=== PATIENT | male | born 1955 | race Caucasian/White ===

== ENCOUNTER 2017-08-28 07:07 | Day surgery (SDC) | payer OTHER ==
[2017-08-28] MEDS ORDERED: LACTATED RINGERS 1,000 ML IV ONE (07:32)
[2017-08-28] MEDS ORDERED: MIDAZOLAM 2 MG/2 ML VIAL IVP ONE (08:26)
[2017-08-28] MEDS ORDERED: fentaNYL 250 MCG/5 ML VIAL IVP ONE (08:26)
[2017-08-28 09:27] VITALS: BP 121/64
== END 2017-08-28 07:08 | disposition home or self-care (01) ==
LOC: SDS 07:07
PROVIDERS: ATTEND Internal Medicine Gastroenterology
PROC: 0DBN8ZZ Excision of Sigmoid Colon, Via Natural or Artificial Opening Endoscopic (ICD-10-PCS; principal; 2017-08-28 08:15)
DX: Z12.11 Encounter for screening for malignant neoplasm of colon (principal); D12.5 Benign neoplasm of sigmoid colon; C61 Malignant neoplasm of prostate; Z80.0 Family history of malignant neoplasm of digestive organs
CPT/HCPCS: 45380; J7120

== ENCOUNTER 2017-10-28 08:00 | Outpatient (CLI) | payer OTHER ==
[2017-10-28 18:38] LABS: PSA FREE 0.79 ng/mL (0.16-2.81)
[2017-10-28 18:39] LABS: PSA TOTAL 5.09 ng/mL (0.000-2.000)
== END 2017-10-28 08:01 ==
LOC: LAB.F 08:00
PROVIDERS: ATTEND Registered Nurse
DX: C61 Malignant neoplasm of prostate (principal)
CPT/HCPCS: 36415; 84154

== ENCOUNTER 2018-01-06 15:05 | Outpatient (CLI) | payer OTHER | END 2018-01-06 15:06 | disposition critical access hospital (66) | LOC: EMS 15:05 | PROVIDERS: ATTEND Surgery | DX: S89.92XA Unspecified injury of left lower leg, initial encounter (principal); W20.8XXA Other cause of strike by thrown, projected or falling object, initial encounter; Y93.H9 Activity, other involving exterior property and land maintenance, building and construction; Y92.008 Other place in unspecified non-institutional (private) residence as the place of occurrence of the external cause | CPT/HCPCS: A0425; A0427 ==

== ENCOUNTER 2018-01-06 16:39 | Emergency (ER) | payer OTHER ==
--- NOTE | 2018-01-06 16:51 | ED Physician Documentation ---
PD HPI LOWER EXT INJURY - Stated complaint Stated Complaint: BROKEN LEG - History obtained from History obtained from: Patient - History of Present Illness PD HPI LOW EXT INJURY LOCATION: Left, Lower leg Type of injury: Blunt / blow (he was cutting up a fallen tree and block of log kicked back and struck his lower leg and pinned his leg under it. He had to cut the log again to get it smaller enough to move it off his leg. He was unable to put weight on leg nor move it without pain. Called EMS.) Where injury occurred: Home (his property) Timing - onset: Today Timing - duration: Hours (1) Timing - details: Abrupt onset Improved by: Immobilization Worsened by: Moving, Palpating Associated symptoms: Swelling. No: Weakness, Numbness Contributing factors: No: Anticoagulated Similar symptoms before: Has not had sx before Recently seen: Not recently seen Review of Systems Nose: denies: Rhinorrhea / runny nose, Congestion Cardiac: denies: Chest pain / pressure Respiratory: denies: Dyspnea, Cough GI: denies: Abdominal Pain Skin: denies: Abrasion (s), Laceration (s) Neurologic: denies: Focal weakness, Numbness, Altered mental status, Headache, Head injury, LOC PD PAST MEDICAL HISTORY - Past Medical History Cardiovascular: None Respiratory: None Endocrine/Autoimmune: None GI: None : Other HEENT: None Psych: None Musculoskeletal: None Derm: None - Present Medications Home Medications: Ambulatory Orders Medication Instructions Recorded Confirmed Ibuprofen 600 mg PO TID PRN #25 tablet 01/06/18 Oxycodone HCl/Acetaminophen 1 - 2 each PO Q6H PRN #25 tablet 01/06/18 [Percocet 5-325 mg Tablet] - Allergies Allergies/Adverse Reactions: Allergies Allergy/AdvReac Type Severity Reaction Status Date / Time No Known Drug Allergies Allergy Verified 01/06/18 16:49 PD ED PE NORMAL - Vitals Vital signs reviewed: Yes - General General: Alert and oriented X 3, Well developed/nourished - HEENT HEENT: Atraumatic - Neck Neck: No bony TTP - Cardiac Cardiac: RRR - Respiratory Respiratory: Clear bilaterally, Other (no chestwall tenderness) - Abdomen Abdomen: Soft, Non tender - Back Back: No spinal TTP - Derm Derm: Normal color, Warm and dry, Other (no lacerations. ) - Extremities Extremities: No edema, Other (left lower leg just below knee with tenderness and swelling. Normal pulses and cap refill distally. Normal sensation and movement in ankle/toes. ) - Neuro Neuro: Alert and oriented X 3, No motor deficit, No sensory deficit, Normal speech Eye Opening: Spontaneous Motor: Obeys Commands Verbal: Oriented GCS Score: 15 Results - Vitals Vitals: Vital Signs - 24 hr 01/06/18 16:40 Temperature 36.7 C Heart Rate 65 Respiratory 18 Rate Blood Pressure 151/112 H O2 Saturation 99 Oxygen O2 Source Room air - Labs Labs: Laboratory Tests 01/06/18 01/06/18 17:03 17:03 WBC 10.2 RBC 4.29 L Hgb 14.4 Hct 43.7 MCV 102.0 H MCH 33.7 H MCHC 33.0 RDW 13.1 Plt Count 128 L MPV 9.7 Neut # (Auto) 8.4 H Lymph # (Auto) 1.0 L [place] # (Auto) 0.7 Eos # (Auto) 0.0 Baso # (Auto) 0.0 Absolute Nucleated RBC 0.01 Nucleated RBC % 0.1 Sodium 139 Potassium 4.7 Chloride 102 Carbon Dioxide 28 Anion Gap 9.0 BUN 25 H Creatinine 1.1 Estimated GFR (MDRD) 68 L Glucose 128 H Calcium 8.8 Total Bilirubin 0.8 AST 30 ALT 23 Alkaline Phosphatase 64 Total Protein 7.5 Albumin 4.4 Globulin 3.1 Albumin/Globulin Ratio 1.4 Lipase 43 - Rads (name of study) left tib/fib Radiology: Final report received (comminuted proximal tibial fracture with angulation, extends to anterior plateau. Proximal fibular metaphysis fracture as well. ) Procedures - Splint (location) left leg Splint applied by: Physician, Tech Type of splint: Fiberglass, Long leg, Posterior Other: Patient tolerated well, No complications, Neurovascular intact, Crutches provided PD MEDICAL DECISION MAKING - ED course Complexity details: reviewed results, re-evaluated patient (still good sensation and movement, color in toes after xray. Will consult Ortho regarding care of the injury.), considered differential, d/w patient, d/w outside sales consultant (Dr. Weber - who reviewed the images. Directs to get CT scan for prep for surgery, to splint with good padding, [place], posterior splint and then knee immobilizer. To give time for swelling to go down, then for surgical repair next week. ) Departure - Departure Clinical Impression: Blunt force injury Fracture of proximal end of left tibia and fibula Qualifiers: Encounter type: initial encounter Fracture type: closed Qualified Code(s): S82.102A - Unspecified fracture of upper end of left tibia, initial encounter for closed fracture Condition: Stable Record reviewed to determine appropriate education?: Yes Instructions: ED Fx Lower Ext Follow-Up: Cayetano Weber MD [Provider Admit Priv/Credential] - Prescriptions: Ibuprofen 600 mg PO TID PRN #25 tablet PRN Reason: Pain Oxycodone HCl/Acetaminophen [Percocet 5-325 mg Tablet] 1 - 2 each PO Q6H PRN #25 tablet PRN Reason: pain Comments: Keep the splint and knee immobilizer on. Rest ice and elevate the leg often over the next several days to reduce swelling. Call the orthopedic office tomorrow for an appointment for follow-up. This will need surgical repair and the orthopedist said the have a better outcome if they wait with the swelling to go down prior to surgery. Naproxen or ibuprofen for pain. Add Tylenol or Percocet if needed for worse pain.
[2018-01-06] MEDS: ONDANSETRON 4 MG/2 ML VIAL IVP STA (16:54)
[2018-01-06] MEDS: HYDROmorphone 1 MG/ML CARPUJECT IVP STA ×3 (16:54→20:06)
[2018-01-06 17:12] LABS: BASOPHILS % (AUTO) 0.4 %; EOSINOPHILS % (AUTO) 0.4 %; HGB - HEMOGLOBIN 14.4 g/dL (14.0-18.0); LYMPHOCYTES % (AUTO) 9.4 %; MEAN CORPUSCULAR HEMOGLOBIN 33.7 pg (27.0-31.0); MEAN PLATELET VOLUME 9.7 fL (7.4-11.4); MONOCYTES # (AUTO) 0.7 10^3/uL (0.0-1.0); MONOCYTES % (AUTO) 6.6 %; NEUTROPHILS # (AUTO) 8.4 10^3/uL (1.5-6.6); NEUTROPHILS % (AUTO) 83.2 %; PLT - PLATELET COUNT 128 10^3/uL (130-450); RED BLOOD COUNT 4.29 10^6/uL (4.70-6.10); RED CELL DISTRIBUTION WIDTH 13.1 % (12.0-15.0); WHITE BLOOD COUNT 10.2 x10^3/uL (4.8-10.8)
[2018-01-06 17:23] LABS: ALBUMIN 4.4 g/dL (3.2-5.5); ALBUMIN/GLOBULIN RATIO 1.4 (1.0-2.2); BILIRUBIN,TOTAL 0.8 mg/dL (0.2-1.0); CALCIUM 8.8 mg/dL (8.5-10.3); CREATININE 1.1 mg/dL (0.6-1.2); TOTAL PROTEIN 7.5 g/dL (6.7-8.2)
--- NOTE | 2018-01-06 17:32 | XRAY Report ---
Reason: lower leg struck by big log Procedure Date: 01/06/2018 Accession Number: [id number] / [id number] Procedure: XR - Tib/Fib LT CPT Code: FULL RESULT: EXAM: LEFT TIBIA/FIBULA RADIOGRAPHY EXAM DATE: 01/06/2018 04:59 PM. CLINICAL HISTORY: Lower leg struck by big log. COMPARISON: None. TECHNIQUE: 2 views. FINDINGS: Bones: There is a comminuted fracture of the superior tibia. The fracture involves the upper tibia diaphysis and metaphysis with 2.5 cm of displacement. The comminuted fracture appears to extend to the anterior tibial plateau. There is a fracture of the superior fibula metaphysis. Joints: No subluxation or dislocation. Soft Tissues: There is soft tissue swelling. IMPRESSION: 1. Comminuted fracture of the proximal left tibia, extending to the anterior tibial plateau. 2. Proximal fibula fracture. RADIA
[2018-01-06] MEDS: KETOROLAC 60 MG/2 ML VIAL IVP STA (19:05)
[2018-01-06] MEDS: oxyCODONE/ACET 5/325 Prepack 4 PO STA (19:06)
--- NOTE | 2018-01-06 20:57 | CT Report ---
Reason: proximal tibial/knee fracture on xray Procedure Date: 01/06/2018 Accession Number: [id number] / [id number] Procedure: CT - Lower Extremity Left W/O CPT Code: FULL RESULT: EXAM: LEFT KNEE CT WITHOUT CONTRAST. EXAM DATE: 01/06/2018 08:41 PM. CLINICAL HISTORY: Proximal tibial/knee fracture on x-ray. COMPARISON: Leg lower left 01/06/2018 4:59 PM. TECHNIQUE: Thin-section axial images were acquired of the knee without contrast. Post-processing: Coronal and sagittal reformats. Other: None. In accordance with CT protocol optimization, one or more of the following dose reduction techniques were utilized for this exam: automated exposure control, adjustment of mA and/or KV based on patient size, or use of iterative reconstructive technique. FINDINGS: Bones: There is a comminuted fracture of the proximal tibia. There is a transverse component through the proximal tibial metaphysis, with moderate lateral displacement and mild anterior tilting of the distal fracture fragment. The fracture fragments also appear superoinferiorly distracted. There is a comminuted fracture extending through the base of the tibial tuberosity, and the anterior aspect of the intercondylar ridge. The fractures extend through both the medial and lateral tibial condyles in the sagittal plane, creating 2 mm gap deformities in both articular surfaces. There is an oblique fracture of the fibular neck with moderate posterior displacement of the distal fracture fragment. Joints: There is a large hemarthrosis. Musculature: There is a hematoma surrounding the fracture, extending into the adjacent anterior muscular compartment. The hematoma is difficult to distinguish from the surrounding muscle. Other: No Bakers cyst. No soft tissue swelling. IMPRESSION: 1. Grossly comminuted fracture of the proximal tibia with intra-articular extension disrupting both the medial and lateral condylar articular surfaces. 2. There is a fracture through the base of the tibial tuberosity. 3. Transverse fracture through the tibial metaphysis with anterior tilting and lateral displacement. RADIA
[2018-01-06 21:55] VITALS: BP 146/91
== END 2018-01-06 21:30 | disposition home or self-care (01) ==
LOC: EDUNIT# → ED 16:39
DX: S82.102A Unspecified fracture of upper end of left tibia, initial encounter for closed fracture (principal); W22.8XXA Striking against or struck by other objects, initial encounter; Y93.H9 Activity, other involving exterior property and land maintenance, building and construction; Y92.007 Garden or yard of unspecified non-institutional (private) residence as the place of occurrence of the external cause
CPT/HCPCS: 29505; 36415; 80053; 83690; 85025; 96374; 96375; 96376; 99283; 99284

== ENCOUNTER 2020-01-30 13:44 | Emergency (ER) | payer OTHER ==
[2020-01-30 14:13] VITALS: BP 155/99
[2020-01-30] MEDS ORDERED: TETANUS/DIPHTHERIA/PERTUSSIS 0.5 ML SYRINGE IM ONE (14:47)
[2020-01-30] MEDS ORDERED: LIDOCAINE 1%-EPI 1:100000 20 ML MDV SUBQ STA (14:47)
[2020-01-30] MEDS ORDERED: BACITRACIN ZINC OINT 1 PACKET TOP STA (15:10)
--- NOTE | 2020-01-30 15:11 | ED Physician Documentation ---
PD HPI UPPER EXT INJURY - Stated complaint Stated Complaint: HAND LACERATION - Chief complaint Chief Complaint: Laceration - History obtained from History obtained from: Patient - History of Present Illness Location: Right, Hand Type of injury: Laceration Where injury occurred: Home Timing - onset: How many hours ago (1) Timing - duration: Hours (1) Timing - details: Abrupt onset Pain level max: 5 Pain level now: 3 Improved by: Rest Worsened by: Moving, Palpating Associated symptoms: No: Weakness, Numbness, Tingling Contributing factors: No: Anticoagulated Recently seen: Not recently seen - Additonal information Additional information: Patient was using a table saw today when the wood kicked back and he cut his right hand. The cat is on the palmar aspect of the hand in between the fourth and fifth digit. unknown last tetanus Review of Systems Constitutional: denies: Fever, Chills Neurologic: denies: Focal weakness, Numbness PD PAST MEDICAL HISTORY - Past Medical History Cardiovascular: None Respiratory: None Endocrine/Autoimmune: None GI: None : Other HEENT: None Psych: None Musculoskeletal: None Derm: None - Past Surgical History Past Surgical History: No - Present Medications Home Medications: Ambulatory Orders Medication Instructions Recorded Confirmed Ibuprofen 600 mg PO TID PRN #25 tablet 01/06/18 Oxycodone HCl/Acetaminophen 1 - 2 each PO Q6H PRN #25 tablet 01/06/18 [Percocet 5-325 mg Tablet] Cephalexin [Keflex] 500 mg PO Q6H #28 capsule 01/30/20 - Allergies Allergies/Adverse Reactions: Allergies Allergy/AdvReac Type Severity Reaction Status Date / Time antibiotic ?name Allergy Unknown Uncoded 01/30/20 14:15 - Social History Does the pt smoke?: No Smoking Status: Never smoker Does the pt drink ETOH?: Yes - Immunizations Immunizations: TDAP current <10years PD ED PE NORMAL - Vitals Vital signs reviewed: Yes - General General: Alert and oriented X 3, No acute distress - HEENT HEENT: Moist mucous membranes - Derm Derm: Warm and dry - Neuro Neuro: Alert and oriented X 3 - Psych Psych: Normal mood, Normal affect PD ED PE EXPANDED - Extremities [place] UE/Hands Visual: 1 - laceration (4cm, NVI, tendon intact. into fat. no bony injury) Results - Vitals Vitals: Vital Signs - 24 hr 01/30/20 14:03 Temperature 36.4 C L Heart Rate 58 L Respiratory 18 Rate Blood Pressure 155/99 H O2 Saturation 100 Oxygen O2 Source Room air Procedures - Laceration (location) R hand Length in cm: 4 Wound type: Linear, Into subcut fat, Contaminated Neurovascular status: Sensory intact, Motor intact, Vascular intact Tendon involvement: Tendon intact Anesthesia: Lidocaine 1% with epi Wound Preparation: Irrigated copiously NS, Wound explored, To the base Skin layer closure: Nylon, Interrupted, Size #-0 - enter number (4), Sutures - enter # (6) Other: Patient tolerated well, No complications, Neurovascular intact, Tetanus booster given (tdap) Complexity: Simple PD MEDICAL DECISION MAKING - ED course Complexity details: considered differential, d/w patient ED course: Patient with a laceration of the right hand. This was repaired. No tendon in jury. No bony injury. Given that it was a dirty sawblade, will place him on Keflex. Tdap given. Warnings of infection and instructions on wound care given at bedside. Also counseled on how to minimize scarring. Patient counseled regarding signs and symptoms for which I believe and urgent re-evaluation would be necessary. Patient with good understanding of and agreement to plan and is comfortable going home at this time This document was made in part using voice recognition software. While efforts are made to proofread this document, sound alike and grammatical errors may occur. Departure - Departure Disposition: 01 Home, Self Care Clinical Impression: Hand laceration Qualifiers: Encounter type: initial encounter Foreign body presence: unspecified Laterality: right Qualified Code(s): S61.411A - Laceration without foreign body of right hand, initial encounter Condition: Good Instructions: ED Laceration Hand Follow-Up: Jaclyn Moody ARNP [Primary Care Provider] - Within 1 week Prescriptions: Cephalexin [Keflex] 500 mg PO Q6H #28 capsule Comments: Take all antibiotics until gone. Return if you worsen. Return if you notice redness, swelling or drainage from the wound. The sutures should be removed in approximately 14 days with your doctor or here.
== END 2020-01-30 15:39 | disposition home or self-care (01) ==
LOC: ED 13:44
DX: S61.411A Laceration without foreign body of right hand, initial encounter (principal); W31.2XXA Contact with powered woodworking and forming machines, initial encounter; Y93.89 Activity, other specified; Y92.009 Unspecified place in unspecified non-institutional (private) residence as the place of occurrence of the external cause; Z23 Encounter for immunization
CPT/HCPCS: 12002; 90471; 99282

== ENCOUNTER 2020-05-04 10:19 | Outpatient (CLI) | payer OTHER ==
[2020-05-04 10:55] LABS: HCT - HEMATOCRIT 43.8 % (42.0-52.0); HGB - HEMOGLOBIN 14.6 g/dL (14.0-18.0); MEAN CORPUSCULAR HGB CONC 33.3 g/dL (32.0-36.0); MEAN CORPUSCULAR VOLUME 99.1 fL (80.0-94.0); MEAN PLATELET VOLUME 11.5 fL (7.4-11.4); RED BLOOD COUNT 4.42 10^6/uL (4.70-6.10); RED CELL DISTRIBUTION WIDTH 12.7 % (12.0-15.0); WHITE BLOOD COUNT 3.7 x10^3/uL (4.8-10.8)
[2020-05-04 10:59] LABS: CALCIUM 9.4 mg/dL (8.5-10.3); CREATININE 1.1 mg/dL (0.6-1.2); POTASSIUM 4.5 mmol/L (3.5-5.0)
== END 2020-05-04 10:20 | disposition home or self-care (01) ==
LOC: LAB 10:19
PROVIDERS: ATTEND Urology
DX: Z01.818 Encounter for other preprocedural examination (principal); R97.20 Elevated prostate specific antigen [PSA]
CPT/HCPCS: 36415; 80048; 84153; 85027

== ENCOUNTER 2020-05-04 10:57 | Outpatient (CLI) | payer OTHER | END 2020-05-04 10:58 | disposition home or self-care (01) | LOC: RT 10:57 | PROVIDERS: ATTEND Urology | DX: Z01.818 Encounter for other preprocedural examination (principal); R97.20 Elevated prostate specific antigen [PSA] | CPT/HCPCS: 36415; 80048; 84153; 85027; 93005 ==

== ENCOUNTER 2020-10-25 08:00 | Outpatient (CLI) | payer OTHER ==
--- NOTE | 2020-10-25 15:27 | XRAY Report ---
PROCEDURE: Hand 3 View RT INDICATIONS: CONTUSION OF RIGHT HAND TECHNIQUE: 3 views of the hand(s) acquired. COMPARISON: None. FINDINGS: Bones: No fractures or dislocations. No suspicious bony lesions. Soft tissues: No suspicious soft tissue calcifications. IMPRESSION: No definite fracture however follow-up radiographs in 10 days could be performed if the patient's sym ptoms do not improve to exclude occult fracture/assess for healing sclerosis. Reviewed by: Michael Verdugo MD on 10/25/2020 3:26 PM PDT Approved by: Michael Verdugo MD on 10/25/2020 3:26 PM PDT Station ID: [id number]
== END 2020-10-25 23:59 | disposition home or self-care (01) ==
LOC: DI.S 08:00
PROVIDERS: ATTEND Emergency Medicine
DX: S60.221A Contusion of right hand, initial encounter (principal)